=== PATIENT | female | born 1965 | race African-American/Black ===

== ENCOUNTER 2019-06-03 16:07 | Emergency (ER) | payer OTHER ==
[~2019-06-03] VITALS: Ht 160 cm; Wt 56.7 kg
[2019-06-03] MEDS ORDERED: NAPROSYN500 MG PO (17:11)
[2019-06-03 17:28] VITALS: BP 132/76
== END 2019-06-03 17:30 | disposition home or self-care (01) ==
LOC: ER 16:07
DX: S97.82XA Crushing injury of left foot, initial encounter (principal); F17.210 Nicotine dependence, cigarettes, uncomplicated; V98.8XXA Other specified transport accidents, initial encounter; Y93.89 Activity, other specified; Y92.488 Other paved roadways as the place of occurrence of the external cause; Y99.8 Other external cause status